=== PATIENT | male | born 1990 | race Caucasian/White ===

== ENCOUNTER 2016-12-19 22:23 | Emergency (ER) | payer BC ==
[2016-12-19] MEDS ORDERED: diphenhydrAMINE 50 MG/ML SDV IVPUSH ONE (22:34)
[2016-12-19] MEDS ORDERED: methylPREDNISolone Sodium Succinate 125 MG/2 ML SDV IVPUSH ONE (22:35)
[2016-12-19 22:39] VITALS: BP 143/69
[2016-12-19] MEDS ORDERED: Ranitidine 50 MG/2 ML SDV IV ONE (22:55)
[2016-12-19] MEDS ORDERED: predniSONE 20 MG Tab ONE (23:20)
--- NOTE | 2016-12-20 01:03 | EDM.PDOC ---
ED HPI Allergic Reaction - General Chief Complaint: Allergic Reaction Stated Complaint: Allergic reaction Time Seen by Provider: 12/19/16 22:30 Source of Information: Reports: Patient - History of Present Illness INITIAL COMMENTS - FREE TEXT/NARRATIVE: 26-year-old male presents to the emergency room this evening with complaints of rash, hives over his arms and lower legs. Patient reports rash started over the last 48 hours. He's been taking the Benadryl which has helped curb the itching but has not improved the rash and has continued to have swelling in his lower legs. He denies any rash around his neck or face. He denies any shortness of breath or difficulty breathing. He denies throat swelling. He comes in for further evaluation as the Benadryl has not seemed to improve his symptoms. 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) - Related Data Allergies/ADRs: Allergies Allergy/AdvReac Type Severity Reaction Status Date / Time amoxicillin [From Augmentin] Allergy Rash Verified 12/19/16 22:33 clavulanic acid Allergy Rash Verified 12/19/16 22:33 [From Augmentin] Penicillins Allergy Rash Verified 12/19/16 22:33 sulfamethoxazole Allergy Hives Verified 12/19/16 22:33 [From Bactrim] trimethoprim [From Bactrim] Allergy Hives Verified 12/19/16 22:33 Home Meds: Home Meds diphenhydrAMINE [Benadryl] 50 mg PO QID PRN 12/19/16 [History] ED ROS ALLERGIC REACTION - Review of Systems Review Of Systems: ROS reveals no pertinent complaints other than HPI. ED EXAM GENERAL NO PERIP PULSE - Physical Exam Exam: See Below Exam Limited By: No limitations General Appearance: alert, WD/WN, no apparent distress Eye Exam: bilateral eye: EOMI, PERRL Ears: normal external exam Nose: normal inspection Throat/Mouth: Normal inspection, Normal lips, Normal teeth, Normal gums, Normal oropharynx, Normal voice, No airway compromise Head: atraumatic, normocephalic Neck: normal inspection, supple, non-tender, full range of motion Respiratory/Chest: no respiratory distress, lungs clear, normal breath sounds, no accessory muscle use Cardiovascular: regular rate, rhythm, no murmur GI/Abdominal: soft Back Exam: normal inspection, full range of motion Extremities: normal range of motion, non-tender, pedal edema (mild edema in the lower legs, feet), other (hives over the upper and lower extremities and hands and feet) Neurological: alert, oriented, normal cognition, no motor/sensory deficits Psychiatric: normal affect, normal mood Skin Exam: Warm, Dry, Intact, Rash Lymphatic: no adenopathy Course - Vital Signs Last Recorded V/S: Last Vital Signs Temp 96.5 F 12/19/16 22:36 Pulse 78 12/19/16 22:36 Resp 20 12/19/16 22:36 BP 143/69 H 12/19/16 22:36 Pulse Ox 97 12/19/16 22:36 - Orders/Labs/Meds Orders: Active Orders 24 hr Category Date Time Status Ranitidine [Zantac] Med 12/19/16 22:36 Active 150 mg PO DAILY PRN Medication Orders Ranitidine HCl (Zantac) 150 mg PO DAILY PRN PRN Reason: Allergies Meds: Medications Generic Name Dose Route Start Last Admin Trade Name Freq PRN Reason Stop Dose Admin Ranitidine HCl 150 mg 12/19/16 22:36 Zantac PO DAILY PRN Allergies Discontinued Medications Generic Name Dose Route Start Last Admin Trade Name Freq PRN Reason Stop Dose Admin Diphenhydramine HCl 50 mg 12/19/16 22:34 12/19/16 22:55 Benadryl IVPUSH 12/19/16 22:35 50 mg ONETIME ONE Administration Methylprednisolone Sodium Succinate 125 mg 12/19/16 22:35 12/19/16 22:55 Solu-Medrol IVPUSH 12/19/16 22:36 125 mg ONETIME ONE Administration Prednisone Confirm 12/19/16 23:20 12/19/16 23:28 Prednisone Administered 12/19/16 23:21 60 mg Dose Administration 60 mg .ROUTE .STK-MED ONE Ranitidine HCl 50 mg 12/19/16 22:55 12/19/16 22:53 Zantac IV 12/19/16 22:56 50 mg ONETIME ONE Administration - Re-Assessments/Exams Free Text/Narrative Re-Assessment/Exam: 12/20/16 01:06 Patient reports improvement of the itching as well as the highest with the IV Benadryl 50 mg and IV methylprednisone 125 mg Departure - Departure Time of Disposition: 00:05 Disposition: Home, Self-Care 01 Condition: good Clinical Impression: Hives Allergic reaction Qualifiers: Encounter type: initial encounter Qualified Code(s): T78.40XA - Allergy, unspecified, initial encounter Instructions: Hives, Prednisone tablets Forms: ED Department Discharge Additional Instructions: 1. Prednisone taper 60 mg tapering down to 10 mg over 6 days. 2. Benadryl 50 mg every 6 hours. 3. Zantac 150 mg twice a day. 4. Followup with your primary care if itching, hives persist. 5. return to the ER if difficulty breathing, swelling of the throat, swelling of the face occurs. - My Orders Last 24 Hours: My Active Orders 12/19/16 22:36 Ranitidine [Zantac] 150 mg PO DAILY PRN - Assessment/Plan Last 24 Hours: My Active Orders 12/19/16 22:36 Ranitidine [Zantac] 150 mg PO DAILY PRN Assessment:: Allergic reaction Hives Plan: 1. Patient will begin a prednisone taper 60 mg tapering down to 10 mg over 6 days. 2. Continue with by mouth Benadryl 50 mg every 6 hours. 3. Return to the ER if signs of anaphylaxis occur. Difficulty breathing, swelling of the throat, facial or neck swelling, or worsening of the hives of the extremities.
== END 2016-12-20 00:05 | disposition home or self-care (01) ==
LOC: KA.ED 22:23
DX: T78.40XA Allergy, unspecified, initial encounter (principal); Z88.0 Allergy status to penicillin; Z88.1 Allergy status to other antibiotic agents; Z88.2 Allergy status to sulfonamides; Z88.8 Allergy status to other drugs, medicaments and biological substances
CPT/HCPCS: 96374; 96375; 99283; A9270; J1200; J2780; J2930

== ENCOUNTER 2019-09-22 15:02 | Emergency (ER) | payer OTHER ==
[2019-09-22 15:16] VITALS: BP 142/77; PULSE 88
--- NOTE | 2019-09-22 15:28 | EDM.PDOC ---
ED HPI GENERAL MEDICAL PROBLEM - General Chief Complaint: General Stated Complaint: right middle finger injury Time Seen by Provider: 09/22/19 15:15 Source of Information: Reports: Patient History Limitations: Reports: No Limitations - History of Present Illness INITIAL COMMENTS - FREE TEXT/NARRATIVE: 29 YO WM presents to ER with an injury to right middle finger tip after smashing it on some weighted plates while lifting today. Pt reports injury to finger nail which is what prompted his ER visit. Pt denies any other injury. Bleeding controlled. Finger and hand are neurovascularly intact without any difficulty with movement or sensation. Onset: Today Location: Reports: Upper Extremity, Right Quality: Reports: Ache Severity: Moderate Improves with: Reports: None Worsens with: Reports: None Associated Symptoms: Reports: No Other Symptoms Right Finger-Middle Pain Score (Numeric/FACES): 5 - Related Data Allergies Allergy/AdvReac Type Severity Reaction Status Date / Time amoxicillin [From Augmentin] Allergy Rash Verified 09/22/19 15:16 clavulanic acid Allergy Rash Verified 09/22/19 15:16 [From Augmentin] Penicillins Allergy Rash Verified 09/22/19 15:16 sulfamethoxazole Allergy Hives Verified 09/22/19 15:16 [From Bactrim] trimethoprim [From Bactrim] Allergy Hives Verified 09/22/19 15:16 Home Meds: Home Meds Doxycycline [Vibramycin] 100 mg PO BID #20 cap 09/22/19 [Rx] traMADol [Ultram] 50 mg PO Q6H PRN #10 tab 09/22/19 [Rx] Social & Family History - Tobacco Use Smoking Status *Q: Former Smoker Used Tobacco, but Quit: Yes Month/Year Tobacco Last Used: quit oct 2018 - Caffeine Use Caffeine Use: Reports: Coffee, Soda Caffeine Use Comment: did not ask - Recreational Drug Use Recreational Drug Use: No ED ROS GENERAL - Review of Systems Review Of Systems: See Below Constitutional: Reports: No Symptoms HEENT: Reports: No Symptoms Respiratory: Reports: No Symptoms Cardiovascular: Reports: No Symptoms Endocrine: Reports: No Symptoms GI/Abdominal: Reports: No Symptoms : Reports: No Symptoms Musculoskeletal: Reports: Hand Pain (right middle finger injury) Skin: Reports: No Symptoms Neurological: Reports: No Symptoms Psychiatric: Reports: No Symptoms Hematologic/Lymphatic: Reports: No Symptoms Immunologic: Reports: No Symptoms ED EXAM, GENERAL - Physical Exam Exam: See Below Exam Limited By: No Limitations General Appearance: Alert, WD/WN, No Apparent Distress Head: Atraumatic, Normocephalic Neck: Normal Inspection, Supple, Non-Tender, Full Range of Motion Respiratory/Chest: No Respiratory Distress, Lungs Clear, Normal Breath Sounds, No Accessory Muscle Use, Chest Non-Tender Cardiovascular: Normal Peripheral Pulses, Regular Rate, Rhythm, No Edema, No Gallop, No JVD, No Murmur, No Rub GI/Abdominal: Normal Bowel Sounds, Soft, Non-Tender, No Organomegaly, No Distention, No Abnormal Bruit, No Mass Back Exam: Normal Inspection, Full Range of Motion, NT Extremities: Normal Inspection, Normal Range of Motion, No Pedal Edema, Normal Capillary Refill Neurological: Alert, Oriented, CN II-XII Intact, Normal Cognition, Normal Gait, Normal Reflexes, No Motor/Sensory Deficits Psychiatric: Normal Affect, Normal Mood Skin Exam: Warm, Dry, Intact, Normal Color, No Rash, Wound/Incision (complete nail avulsion to right middle finger without laceration ) Lymphatic: No Adenopathy ED GENERAL MEDICAL PROCEDURES - Laceration/Wound Repair Right Distal Digit - 3rd (Middle) Appearance: Other (nail removal ) Distal NVT: Neuro & Vascular Intact, No Tendon Injury Anesthetic Type: Digital Local Anesthesia - Lidocaine (Xylocaine): 1% Plain Local Anesthetic Volume: Other (10) Skin Prep: Chlorhexidine (Hibiciens), Saline Exploration/Debridement/Repair: Wound Explored, Other (nail removal from partially avulsed fingernail) Sterile Dressing Applied: Provider Tetanus Status Addressed: Yes Complications: No Course - Vital Signs Last Recorded V/S: Last Vital Signs Temp 35.9 C 09/22/19 15:07 Pulse 88 09/22/19 15:07 Resp 18 09/22/19 15:07 BP 142/77 H 09/22/19 15:07 Pulse Ox 95 09/22/19 15:07 - Orders/Labs/Meds Orders: Active Orders 24 hr Category Date Time Status Vaccines to be Administered [RC] PER UNIT ROUTINE Care 09/22/19 15:30 Ordered Meds: Medications Discontinued Medications Generic Name Dose Route Start Last Admin Trade Name Freq PRN Reason Stop Dose Admin Diphtheria/Tetanus/Acell Pertussis 0.5 ml 09/22/19 15:29 09/22/19 15:49 Adacel IM 09/22/19 15:30 Not Given .ONCE ONE Lidocaine HCl 10 ml 09/22/19 15:29 09/22/19 15:50 Xylocaine 1% INJECT 09/22/19 15:30 Not Given ONETIME ONE Lidocaine HCl 10 ml 09/22/19 15:35 09/22/19 15:50 Xylocaine 1% INJECT 09/22/19 15:36 Not Given ONETIME ONE Lidocaine HCl 20 ml 09/22/19 15:41 09/22/19 15:49 Xylocaine 1% INJECT 09/22/19 15:42 10 ml ONETIME ONE Administration - Radiology Interpretation Free Text/Narrative:: right middle finger- comminuted distal 3rd digit fracture Departure - Departure Time of Disposition: 15:43 Disposition: Home, Self-Care 01 Condition: Good Clinical Impression: Open fracture of distal phalanx of digit of right hand Fingernail avulsion, complete Qualifiers: Encounter type: initial encounter Qualified Code(s): S61.309A - Unspecified open wound of unspecified finger with damage to nail, initial encounter - Discharge Information Prescriptions: Doxycycline [Vibramycin] 100 mg PO BID #20 cap traMADol [Ultram] 50 mg PO Q6H PRN #10 tab PRN Reason: Pain Instructions: Nail Avulsion, Finger Fracture, Adult, Fingernail or Toenail Removal, Adult, Care After Referrals: Elke Christianson MD [Primary Care Provider] - Forms: ED Department Discharge Additional Instructions: 1. discharge home 2. doxycycline 100mg PO BID x 10 days for open fracture 3. ultram 50mg PO Q6 PRN pain #10 4. wound care instructions given 5. follow up in clinic in 1 week for recheck 6. return to ER for worsening symptoms Sepsis Event Note - Evaluation Sepsis Screening Result: No Definite Risk - Focused Exam Vital Signs: Vital Signs Temp Pulse Resp BP Pulse Ox 09/22/19 15:07 35.9 C 88 18 142/77 H 95 Date Exam was Performed: 09/22/19 Time Exam was Performed: 16:10 - My Orders Last 24 Hours: My Active Orders 09/22/19 15:30 Vaccines to be Administered [RC] PER UNIT ROUTINE - Assessment/Plan Last 24 Hours: My Active Orders 09/22/19 15:30 Vaccines to be Administered [RC] PER UNIT ROUTINE Assessment:: 1. right distal 3rd digit comminuted fracture with nail avulsion Plan: 1. discharge home 2. doxycycline 100mg PO BID x 10 days for open fracture 3. ultram 50mg PO Q6 PRN pain #10 4. wound care instructions given 5. follow up in clinic in 1 week for recheck 6. return to ER for worsening symptoms
[2019-09-22] MEDS ORDERED: Diphtheria,Pertussis(Acell),Tetanus Vaccine 0.5 ML SDV IM ONE (15:29)
[2019-09-22] MEDS ORDERED: Lidocaine 1% 50 ML MDV INJECT ONE (15:29)
[2019-09-22] MEDS ORDERED: Lidocaine 1% 10 ML MDV INJECT ONE (15:35)
[2019-09-22] MEDS ORDERED: Lidocaine 1% 20 ML MDV INJECT ONE (15:41)
--- NOTE | 2019-09-22 15:55 | CR ---
[id number] RAD/RAD Fingers Right EXAM: RIGHT FINGERS 3 VIEWS INDICATION: INJURY WITH WEIGHTS. COMPARISON: None. DISCUSSION: There is a tiny chip fracture off the tip of the distal third phalanx. There is an adjacent soft tissue injury with soft tissue gas. No dislocation or other osseous abnormality. IMPRESSION: 1. Small chip fracture off the terminal tuft of the distal third phalanx. Leroy Shepherd MD 09/22/19 [id number] Thank you for allowing us to participate in the care of your patient.
== END 2019-09-22 16:00 | disposition home or self-care (01) ==
LOC: KA.ED 15:02
DX: S61.212A Laceration without foreign body of right middle finger without damage to nail, initial encounter (principal); S62.632B Displaced fracture of distal phalanx of right middle finger, initial encounter for open fracture; Z87.891 Personal history of nicotine dependence; Z88.1 Allergy status to other antibiotic agents; Z88.0 Allergy status to penicillin; Z88.2 Allergy status to sulfonamides
CPT/HCPCS: 11730; 73140-F7; 90471; 99283-25; J2001

== ENCOUNTER 2020-07-27 15:49 | Emergency (ER) | payer OTHER ==
[2020-07-27 16:05] VITALS: BP 119/67; PULSE 66
--- NOTE | 2020-07-27 16:45 | CR ---
[id number] RAD/RAD Foot Right 2V Exam: RAD Foot Right 2V Indication:FALL. Comparison: No prior imaging for comparison. Discussion/Impression: Accessory ossicle versus chronically ununited fracture, or talar ridge (normal variant) on the dorsal aspect of the talus on lateral view. No evidence of an acute fracture in the foot. Bones in normal alignment. No AVN or erosive changes identified. Johan Yadav MD 07/27/20 [id number] Thank you for allowing us to participate in the care of your patient.
--- NOTE | 2020-07-27 16:46 | CR ---
[id number] RAD/RAD Ankle Right 2V Exam: RAD Ankle Right 2V Indication:FALL. Comparison: No prior imaging for comparison. Discussion/Impression: AP view demonstrates small acute appearing avulsion-type fracture fragments arising from the lateral hindfoot. Difficult to accurately localize on the other views as they're not visualized. There is overlying soft tissue swelling. No other evidence of fracture in the hindfoot. No dislocation. Johan Yadav MD 07/27/20 [id number] Thank you for allowing us to participate in the care of your patient.
--- NOTE | 2020-07-27 16:47 | EDM.PDOC ---
ED HPI GENERAL MEDICAL PROBLEM - General Chief Complaint: Lower Extremity Injury/Pain Stated Complaint: RIGHT FOOT INJURY Time Seen by Provider: 07/27/20 16:29 Source of Information: Reports: Patient History Limitations: Reports: No Limitations - History of Present Illness INITIAL COMMENTS - FREE TEXT/NARRATIVE: Patient presents with right foot pain after twisting it on some stairs today. He can walk on it but it's painful. He denies any other injuries. Right Ankle Pain Score (Numeric/FACES): 5 - Related Data Allergies Allergy/AdvReac Type Severity Reaction Status Date / Time amoxicillin [From Augmentin] Allergy Rash Verified 09/22/19 15:16 clavulanic acid Allergy Rash Verified 09/22/19 15:16 [From Augmentin] Penicillins Allergy Rash Verified 09/22/19 15:16 sulfamethoxazole Allergy Hives Verified 09/22/19 15:16 [From Bactrim] trimethoprim [From Bactrim] Allergy Hives Verified 09/22/19 15:16 Home Meds: Home Meds Doxycycline [Vibramycin] 100 mg PO BID #20 cap 09/22/19 [Rx] traMADol [Ultram] 50 mg PO Q6H PRN #10 tab 09/22/19 [Rx] Past Medical History - Past Surgical History HEENT Surgical History: Reports: Tonsillectomy Social & Family History - Tobacco Use Tobacco Use Status *Q: Never Tobacco User - Caffeine Use Caffeine Use: Reports: Coffee, Soda Caffeine Use Comment: did not ask - Recreational Drug Use Recreational Drug Use: No Review of Systems - Review of Systems Review Of Systems: Comprehensive ROS is negative, except as noted in HPI. ED EXAM, GENERAL - Physical Exam Exam: See Below Exam Limited By: No Limitations General Appearance: Alert, WD/WN, No Apparent Distress Eye Exam: Bilateral Eye: EOMI, Normal Inspection, PERRL Ears: Normal External Exam, Hearing Grossly Normal Nose: Normal Inspection, No Blood Throat/Mouth: Normal Inspection, Normal Voice, No Airway Compromise Head: Atraumatic, Normocephalic Neck: Normal Inspection, Full Range of Motion Respiratory/Chest: No Respiratory Distress, No Accessory Muscle Use Extremities: Other (Right foot has swelling in the proximal 3rd and 4th met atarsals to the anterior lateral malleolus. This region is also tender to palpation but without ecchymosis. No pain in malleoli or other metatarsals. Distal CMS intact.) Neurological: Alert, Oriented, Normal Cognition, No Motor/Sensory Deficits Psychiatric: Normal Affect, Normal Mood Skin Exam: Warm, Dry, Intact, Normal Color, No Rash Course - Vital Signs Last Recorded V/S: Last Vital Signs Temp 99.0 F 07/27/20 16:04 Pulse 66 07/27/20 16:04 Resp 18 07/27/20 16:04 BP 119/67 07/27/20 16:04 Pulse Ox 97 07/27/20 16:04 - Orders/Labs/Meds Orders: Active Orders 24 hr Category Date Time Status Ankle 2V Rt [CR] Stat Exams 07/27/20 16:03 Ordered Foot 2V Rt [CR] Stat Exams 07/27/20 16:03 Ordered - Re-Assessments/Exams Free Text/Narrative Re-Assessment/Exam: 07/27/20 17:04 Xrays show no acute fracture but possibly an old talus fracture vs ossicle variant. Discussed findings and treatment plan with patient. He is fitted with a hard-soled shoe and AMAN wrap is placed. This provided significant in walking comfort. We discussed CAM boot also and pt would like to just do the shoe. Discharged to home in stable condition. Departure - Departure Time of Disposition: 16:54 Disposition: Home, Self-Care 01 Condition: Good Clinical Impression: Sprain of foot, right Qualifiers: Encounter type: initial encounter Qualified Code(s): S93.601A - Unspecified sprain of right foot, initial encounter - Discharge Information Referrals: Elke Christianson MD [Primary Care Provider] - Additional Instructions: Use the CAM boot and AMAN wrap to control pain and swelling as needed. Use ice and elevating the foot above heart level as needed to control swelling as well. You can use Ibuprofen and/or tylenol as directed if needed for pain control. Follow up with PCP if not improving in a week or sooner if worsening. Sepsis Event Note (ED) - Evaluation Sepsis Screening Result: No Definite Risk - Focused Exam Vital Signs: Vital Signs Temp Pulse Resp BP Pulse Ox 07/27/20 16:04 99.0 F 66 18 119/67 97 - My Orders Last 24 Hours: My Active Orders 07/27/20 16:03 Ankle 2V Rt [CR] Stat Foot 2V Rt [CR] Stat - Assessment/Plan Last 24 Hours: My Active Orders 07/27/20 16:03 Ankle 2V Rt [CR] Stat Foot 2V Rt [CR] Stat
== END 2020-07-27 17:10 | disposition home or self-care (01) ==
LOC: KA.ED 15:49
DX: S93.601A Unspecified sprain of right foot, initial encounter (principal); Z88.1 Allergy status to other antibiotic agents; Z88.2 Allergy status to sulfonamides; Z88.0 Allergy status to penicillin; Z90.49 Acquired absence of other specified parts of digestive tract; X50.1XXA Overexertion from prolonged static or awkward postures, initial encounter
CPT/HCPCS: 73600-RT; 73620-RT; 99283

== ENCOUNTER 2022-10-27 10:50 | Day surgery (SDC) | payer OTHER ==
[2022-10-27] MEDS ORDERED: Propofol 200 MG/20 ML SDV IV ONE (10:51)
[2022-10-27] MEDS ORDERED: Sodium Chloride 0.9% 10 ML Syringe FLUSH PRN (11:00)
[2022-10-27] MEDS ORDERED: Lactated Ringers 1,000 ML IV SCH (11:00)
[2022-10-27] MEDS ORDERED: Propofol 200 MG/20 ML SDV ONE ×3 (12:23→12:54)
[2022-10-27] MEDS ORDERED: Midazolam 1 MG/ML 2 ML SDV ONE (12:23)
[2022-10-27 13:48] VITALS: PULSE 65
[2022-10-27 14:39] VITALS: BP 114/63
== END 2022-10-27 14:30 | disposition home or self-care (01) ==
LOC: KA.SDS 10:50
PROVIDERS: ATTEND Family Medicine
DX: K63.5 Polyp of colon (principal); Z79.899 Other long term (current) drug therapy; Z88.0 Allergy status to penicillin; Z88.1 Allergy status to other antibiotic agents; Z88.2 Allergy status to sulfonamides
CPT/HCPCS: 00811; J2250; J2704; J7120

== ENCOUNTER 2024-08-01 07:45 | Day surgery (SDC) | payer OTHER, BC ==
[~2024-08-01 07:45] MED LIST: Sodium Chloride 0.9% 10 ML Syringe FLUSH PRN
[2024-08-01] MEDS: Lactated Ringers 1,000 ML IV SCH (08:17)
[2024-08-01] MEDS ORDERED: Midazolam 1 MG/ML 2 ML SDV ONE (08:27)
[2024-08-01] MEDS ORDERED: Propofol 200 MG/20 ML SDV ONE (08:27)
[2024-08-01] MEDS ORDERED: Lidocaine 2% 100 MG/5 ML Syringe ONE (08:28)
[2024-08-01] MEDS ORDERED: Ketamine 200 MG/20 ML MDV ONE (08:28)
[2024-08-01 10:56] VITALS: BP 112/67; PULSE 84
== END 2024-08-01 10:24 | disposition home or self-care (01) ==
LOC: KA.SDS 07:45
PROVIDERS: ATTEND Family Medicine
DX: K20.90 Esophagitis, unspecified without bleeding (principal)
CPT/HCPCS: 00731; 43239; J2250; J2704; J7120; J3490